=== PATIENT | male | born 2000 | race Caucasian/White ===

== ENCOUNTER → 2020-12-25 | Emergency (ER) | payer OTHER ==
[~2020-12-25] VITALS: Ht 177.8 cm; Wt 63.5 kg
[~2020-12-25] MED LIST: CEPHALEXIN500 MG ORAL; HYDROcodone/Acetamin 5/325 tab ORAL ONE; IBUPROFEN600 M1 ORAL; Lidocaine 1% Plain 30 ml INJ ONE
--- NOTE | 2020-12-25 23:37 | NUR ---
patient presented to ambulatory triage, laceration to the right 5th digit from attempting to cotton picker a piece of glass, patient appears anxious Aox4, vitals are stable complaintsts of pain 8/10
--- NOTE | 2020-12-25 23:47 | Emergency Room Report ---
History of Present Illness General Chief Complaint: Laceration Source: Patient Present Illness HPI 1-year-old male who is right-hand dominant. He presents with chief complaint of finger laceration. He was berry picker some broken glass and sustained a laceration to his right fifth finger. Onset was acute and occur about 30 to 45 minutes prior to arrival. No other injury. Pain is 9 out of 10. Throbbing in nature. Bleeding controlled. Denies any other complaint. Worse with movement. Better with rest. Allergies: Coded Allergies: No Known Allergies (Unverified , 12/25/20) COVID-19 Screening Contact w/high risk pt: No Experienced COVID-19 symptoms?: No COVID-19 Testing performed CAVALRY SCOUT: No COVID-19 Screening: Negative COVID-19 COVID-19 Testing Source: [facility] Patient History Past Medical History: see triage record, old chart reviewed Past Surgical History: none Pertinent Family History: none Social History: Denies: smoking Immunizations: other Reviewed Nursing Documentation: PMH: Agreed; PSxH: Agreed Nursing Documentation-PMH Past Medical History: No Stated History Review of Systems Eye: Denies: eye pain, blurred vision ENT: Denies: ear pain, nose congestion, throat swelling Respiratory: Denies: cough, shortness of breath Cardiovascular: Denies: chest pain, palpitations Gastrointestinal: Denies: abdominal pain, diarrhea, nausea, vomiting Musculoskeletal: Denies: back pain, joint pain Skin: Denies: rash Neurological: Denies: headache, numbness Endocrine: Denies: increased thirst, increased urine Hematologic/Lymphatic: Denies: easy bruising All Other Systems: negative except mentioned in HPI Physical Exam Vital Signs Date Time Temp Pulse Resp B/P (MAP) Pulse Ox O2 Delivery O2 Flow Rate FiO2 12/25/20 23:25 98.4 85 20 124/74 (91) 98 Room Air Vitals normal Sp02 EP Interpretation: reviewed, normal General Appearance: well appearing, no apparent distress, alert Head: normocephalic, atraumatic Eyes: bilateral eye PERRL, bilateral eye EOMI ENT: hearing grossly normal, normal pharynx Neck: full range of motion, supple, no meningismus Respiratory: chest non-tender, lungs clear, normal breath sounds Cardiovascular #1: regular rate, rhythm, no murmur Gastrointestinal: normal bowel sounds, non tender, no mass, no organomegaly, no bruit, non-distended Musculoskeletal: back normal, normal range of motion, gait/station normal, other - Right fifth finger: There is a flap laceration to the distal pad measuring about 1 cm. Psychiatric: mood/affect normal Procedures Laceration/Wound Repair Laceration/Wound Repair : Consent: Verbal Wound Location: upper extremity - Right fifth finger Wound's Depth, Shape: irregular, flap Wound Length (cm): 2 Wound Explored: clean Irrigated w/ Saline (ccs): 1000 Betadine Prep?: Yes Anesthesia: 1% Lidocaine Volume Anesthetic (ccs): 4 Wound Repaired With: sutures Suture Size/Type: 6:0, proline Number of Sutures: 7 Patient Tolerated: Well Complications: None Progress I did a digital block and local infiltrate with 1% lidocaine without epine phrine. Medical Decision Making Diagnostic Impression: Primary Impression: Laceration ER Course Patient sustained a laceration to his right fifth finger. No foreign body. No tendon laceration. Will discharge home. Last Vital Signs Date Time Temp Pulse Resp B/P (MAP) Pulse Ox O2 Delivery O2 Flow Rate FiO2 12/25/20 23:25 98.4 85 20 124/74 (91) 98 Room Air Status: improved Disposition: HOME, SELF-CARE Condition: Stable Scripts Ibuprofen* (MOTRIN*) 600 Mg Tablet 600 MG ORAL Q6H PRN for For Pain, #30 TAB 0 Refills Prov: Ervin Shepherd MD 12/26/20 Cephalexin* (KEFLEX*) 500 Mg Capsule 500 MG ORAL TID, #21 CAP Prov: Ervin Shepherd MD 12/26/20 Patient Instructions: Laceration Care, Adult Additional Instructions: Keep wound clean. Apply antibiotic ointment and keep it covered. Suture out in 7 to 10 days. Return if worse. Ervin Shepherd MD Dec 25, 2020 23:47
[2020-12-25 23:58] VITALS: BP 124/74
--- NOTE | 2020-12-26 00:41 | NUR ---
ER DISCHARGE NOTE: Patient is cleared to be discharged per ERMD, pt is aox4, on room air, with stable vital signs. pt was given dc and prescription instructions, pt was able to verbalize understanding, pt id band and iv site removed without complications. pt is able to ambulate with steady gait. pt took all belongings.
[2020-12-26 00:42] VITALS: BP 126/72
== END | disposition home or self-care (01) ==
LOC: EMR 23:48
DX: S61.216A Laceration without foreign body of right little finger without damage to nail, initial encounter (principal); W25.XXXA Contact with sharp glass, initial encounter; Y93.89 Activity, other specified; Y92.9 Unspecified place or not applicable
CPT/HCPCS: 99282